=== PATIENT | male | born 1955 | race Caucasian/White ===

== ENCOUNTER 2019-08-13 19:11 | Emergency (ER) | payer MEDICARE, SELFPAY ==
--- NOTE | ~2019-08-13 | XR_ITS ---
XR knee RT 3V 08/13/2019 19:49 INDICATION: Right medial knee pain PROCEDURE: 3 views right knee COMPARISON: No prior studies for comparison. FINDINGS: Fracture, dislocation or subluxation is not identified. Mild patellofemoral compartment ost eoarthritis. The soft tissues appear within normal limits. No foreign bodies are identified. IMPRESSION: 1: No acute fracture. 2: Mild patellofemoral compartment osteoarthritis. Reviewed, dictated and finalized at location A.
[2019-08-13 19:34] VITALS: BP 142/70; PULSE 71; RESP 16; TEMP 36.6; O2SAT 98
--- NOTE | 2019-08-13 19:34 | ED.LOWEXIN ---
HPI - Extremity Injury (Lower) General Chief Complaint: Extremity Injury, Lower Stated Complaint: rihgt knee pain Time Seen by Provider: 08/13/19 19:34 Source: patient Mode of arrival: ambulatory Limitations: no limitations History of Present Illness HPI Narrative: Sesar Hartman is a 64 yo male with c/o R knee pain after working at home this weekend- Pain in R knee, particularly with turning and walking - states he was shoveling over the weekend. Related Data Home Medications Medication Instructions Recorded Confirmed metoprolol tartrate 50 mg BID 08/13/19 08/13/19 oxycodone-acetaminophen 1 tablet Q4-6H 08/13/19 08/13/19 propranolol 20 mg BID 08/13/19 08/13/19 Allergies Allergy/AdvReac Type Severity Reaction Status Date / Time aspirin Allergy Mild Itching Verified 08/13/19 19:35 codeine Allergy Mild Nausea Verified 08/13/19 19:35 hydromorphone Allergy Mild Nausea and Verified 08/13/19 19:35 Vomiting penicillin G Allergy Mild Vomiting Verified 08/13/19 19:35 Review of Systems Review of Systems: Narrative: CONSTITUTIONAL: Denies fever, chills, sweats. EYES: Denies visual changes, redness, discharge. ENT: Denies rhinorrhea, congestion, sore throat, otalgia. CARDIOVASCULAR: Denies chest pain, palpitations, edema. RESPIRATORY: Denies dyspnea, wheezing, cough GASTROINTESTINAL: Denies abdominal pain, nausea, vomiting, diarrhea. GENITOURINARY: Denies dysuria, hematuria, abnormal discharge SKIN: Denies rash or itching. NEUROLOGIC: Denies numbness, or focal weakness. PSYCHIATRIC: Denies anxiety or depression. Right knee pain PMFSH Past Medical History Medical History (Updated 08/13/19 @ 19:49 by Leonila Diaz CNP) Femur fracture Family History Family History Other Hypertension Social History Social History Smoking status: Former smoker Alcohol intake: current Gender identity (if verbalized by the patient): Male Comments At time of signature, I agree with nursing past medical, surgical, social and family history. There is no relevant family history pertinent to the presenting complaint. Exam Narrative: Exam Narrative: GENERAL: This is a well-nourished, well-developed patient, in mild distress. HEAD: normocephalic, atraumatic. EYES:Sclera clear/white. Vision is grossly intact. EARS: External ears normal, a Hearing grossly intact. NOSE: External nose normal without nasal discharge, nares without redness, no rhinorrhea. THROAT: Mucous membranes moist, NECK: Neck supple, CARDIOVASCULAR: Regular rate and rhythm without murmurs, gallops, or rubs. RESPIRATORY: Clear to auscultation. Breath sounds equal bilaterally. No wheezes, rales, or rhonchi. GASTROINTESTINAL: Abdomen soft, SKIN: warm, intact with no suspicious lesions or rash, good texture and turgor. NEURO: awake, alert, and oriented to person, place and time. There were no obvious focal neurologic abnormalities. Steady gait EXTREMITIES: Normal range of motion. Able to walk on right knee pain with pressure of walking pain is on the medial side of patella at the lower patellar pole BACK: tender without deformity Course Course Emergency Course: X-ray right knee Right knee immobilizer Vital Signs Vital signs: Vital Signs Temperature 97.8 F 08/13/19 19:34 Pulse Rate 71 08/13/19 19:34 Respiratory Rate 16 08/13/19 19:34 Blood Pressure 142/70 H 08/13/19 19:34 Pulse Oximetry 98 08/13/19 19:34 Temperature 97.8 F 08/13/19 19:34 Pulse Rate 71 08/13/19 19:34 Respiratory Rate 16 08/13/19 19:34 Blood Pressure 142/70 H 08/13/19 19:34 Pulse Oximetry 98 08/13/19 19:34 MDM - Extremity Injury (Lower) Differential Diagnosis Differential diagnosis: Likely other (Ligamentous injury vs knee sprain) Discharge Plan Discharge Clinical Impression: Knee sprain Qualifiers: Involved ligament of knee: medial
== END 2019-08-13 20:02 | disposition home or self-care (01) ==
PROVIDERS: Emergency Provider Nurse Practitioner; PCP Family Medicine
DX: S83.411A Sprain of medial collateral ligament of right knee, initial encounter (principal); Z87.891 Personal history of nicotine dependence; X50.9XXA Other and unspecified overexertion or strenuous movements or postures, initial encounter
CPT/HCPCS: 73562; 99213; G0463; L1830

== ENCOUNTER 2019-09-03 12:17 | Outpatient (CLI) | payer MEDICARE, SELFPAY ==
--- NOTE | ~2019-09-03 | MR_ITS ---
EXAMINATION: MR knee RT wo con DATE: 09/03/2019 13:42 INDICATION: Right knee injury 304 weeks prior presenting with medial right knee pain and limited rang e of motion with difficulty walking. TECHNIQUE: Magnetic resonance imaging (MRI) of the right knee was performed without intravenous contr ast. Sequences included coronal PD-weighted FSE, coronal PD-weighted FS FSE, sagittal T2-weighted FS E, sagittal PD-weighted FS FSE and axial PD weighted fat saturated FSE. COMPARISON: None. FINDINGS: Medial compartment: Complex medial meniscal tear with curved parrot beak configuration tear plane extending from the free edge to the periphery of the posterior horn as well as a longitudinal horizontal tear plane extendin g to the inferior articular surface of the body and posterior horn. Articular cartilage is normal. Lateral compartment: Lateral meniscus is normal. Articular cartilage is normal. Patellofemoral compartment: Deep chondral fissuring with very small underlying central subchondral osteophytes and minimal subart icular edema at the cephalad aspect of the medial patellar facet and at the inferior aspect of the me dial trochlea. Additional partial thickness chondral fissure without degenerative subchondral changes at the central aspect of the lateral patellar facet. Ligaments and tendons: Anterior and posterior cruciate ligaments are normal. There is small amount of fluid extending along the deep and superficial margin of the normal-appearing medial collateral ligament which is most like ly reactive edema related to a meniscal tear although differential would include low-grade sprain of the medial collateral ligament. The fibular collateral ligament complex is normal. Patellar tendon is normal. Mild distal quadriceps tendinopathy without discrete tear. Mild tendinopathy without discret e tear at the tibial insertion of the distal semimembranosus tendon. The visualized medial and latera l hamstring tendons as well as the iliotibial band are otherwise normal. Fluid: Physiologic amount of fluid in the right knee joint space. There are small ganglion cysts along the p eriphery of the proximal tibiofibular articulation. Very small Patel's cyst. No loose osteochondral b odies identified. Prepatellar edema without discrete bursal fluid collection. Osseous/other: Side from the previous noted tiny foci of subarticular edema at the patellofemoral compartment there is normal marrow signal. No fracture or pathologic marrow replacing process. IMPRESSION: 1. Complex tear of the medial meniscus. 2. Mild patellofemoral osteoarthritis with a couple small regions of high-grade chondromalacia at the medial patellar facet and medial trochlea. 3. Edema along side the normal-appearing medial collateral ligament most likely reactive related to t he medial meniscal tear although differential would include low-grade medial collateral ligament spra in. Reviewed, dictated and finalized at location A. IMPRESSION: 1. Complex tear of the medial meniscus. 2. Mild patellofemoral osteoarthritis with a couple small regions of high-grade chondromalacia at the medial patellar facet and medial trochlea. 3. Edema along side the normal-appearing medial collateral ligament most likely reactive related to the medial meniscal tear although differential would inclu de low-grade medial collateral ligament sprain.
== END 2019-09-03 12:18 | disposition home or self-care (01) ==
PROVIDERS: PCP Family Medicine; Visit Provider Orthopaedic Surgery
DX: S83.241A Other tear of medial meniscus, current injury, right knee, initial encounter (principal); X58.XXXA Exposure to other specified factors, initial encounter
CPT/HCPCS: 73721

== ENCOUNTER 2019-10-06 09:56 | Outpatient (CLI) | payer MEDICARE, SELFPAY ==
--- NOTE | ~2019-10-06 | XR_ITS ---
EXAMINATION: XR chest 2V DATE: 10/06/2019 10:18 INDICATION: Cough and congestion. TECHNIQUE: Frontal and lateral views of the chest were obtained. COMPARISON: None. FINDINGS: There is mild atelectasis at the lung bases. No pleural effusion or pneumothorax. The heart size is normal. Surgical clips in the right upper quadrant are likely from cholecystectomy. IMPRESSION: 1. Mild atelectasis at the lung bases. Reviewed, dictated and finalized at location A.
== END 2019-10-06 09:57 | disposition home or self-care (01) ==
PROVIDERS: PCP Family Medicine; Visit Provider Nurse Practitioner
DX: R05 Cough (principal); R09.89 Other specified symptoms and signs involving the circulatory and respiratory systems; R91.8 Other nonspecific abnormal finding of lung field
CPT/HCPCS: 71046

== ENCOUNTER 2019-12-07 12:26 | Emergency (ER) | payer MEDICARE, SELFPAY ==
[2019-12-07 12:38] VITALS: BP 123/67; PULSE 80; RESP 16; TEMP 36.7; O2SAT 97
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
[2019-12-07] MEDS: TETANUS,DIPHTHERIA,AC PERTUSSIS ADULT (0.5 ML) BOOSTRIX IM (13:01)
== END 2019-12-07 13:20 | disposition home or self-care (01) ==
PROVIDERS: Emergency Provider Nurse Practitioner Family; PCP Family Medicine
DX: S61.031A Puncture wound without foreign body of right thumb without damage to nail, initial encounter (principal); I10 Essential (primary) hypertension; W26.8XXA Contact with other sharp object(s), not elsewhere classified, initial encounter; Z23 Encounter for immunization; Z87.891 Personal history of nicotine dependence
CPT/HCPCS: 90471; 90715; 99212; G0463

== ENCOUNTER 2019-12-11 11:11 | Outpatient (CLI) | payer MEDICARE, SELFPAY ==
[2019-12-11 12:10] LABS: Basophils Absolute Auto 0.1 K/mm3 (0.0-0.1); Basophils Percent Auto 1.5 % (0.2-1.2); Eosinophils Absolute Auto 0.3 K/mm3 (0-0.3); Hematocrit 40.8 % (42.0-52.0); Hemoglobin 13.9 g/dL (14.0-18.0); Immature Granulocyte Absolute 0.03 K/mm3 (0.00-0.031); Immature Granulocyte Percent A 0.4 % (0-0.5); Lymphocytes Absolute Auto 3.35 K/mm3 (0.9-3.2); Lymphocytes Percent Auto 40.9 % (18.3-44.2); Mean Corpuscular HGB Conc 34.1 g/dl (32-36); Mean Corpuscular Hemoglobin 32.2 pg (26-34); Mean Corpuscular Volume 94.4 fl (80-100); Mean Platelet Volume 8.9 fl (7.4-10.4); Monocytes Absolute Auto 0.7 K/mm3 (0.1-0.6); Neutrophils Absolute Auto 3.6 K/mm3 (1.3-6.7); Neutrophils Percent Auto 44.2 % (45.5-73.1); Platelet Count Result 300 k/mm3 (150-375); Red Blood Count 4.32 M/mm3 (4.6-6.20); Red Cell Distribution Width 13.7 % (11.5-14.5); White Blood Count 8.2 K/mm3 (4.5-10.0)
[2019-12-11 12:21] LABS: Alanine Aminotransferase 23 U/L (4-50); Albumin Level 3.9 g/dL (3.5-5.1); Alkaline Phosphatase 48 U/L (38-126); Anion Gap 4 mmol/L (8-16); Aspartate Amino Transferase 23 U/L (17-59); Bilirubin,Total 0.5 mg/dL (0.2-1.3); Blood Urea Nitrogen 12 mg/dL (9-20); Calcium 9.3 mg/dL (8.4-10.2); Carbon Dioxide 28 mmol/L (22-30); Chloride 103 mmol/L (98-107); Cholesterol 226 mg/dL (0-200); Estimated Glomerular Filt Rate > 60; Glucose 116 mg/dL (75-110); HDL Direct 41 mg/dL; Potassium 4.2 mmol/L (3.4-5.0); Sodium 135 mmol/L (137-145); Triglycerides 165 mg/dL (<150)
[2019-12-11 12:32] LABS: LDL Cholesterol Direct 152 mg/dL
[2019-12-11 12:41] LABS: Creatinine Urine 113.3 mg/dL
[2019-12-11 12:52] LABS: Prostate Specific Antigen 0.5 ng/mL (< OR = 4.0); Total Triiodothyronine (T3) 1.05 NG/ML (0.97-1.69)
[2019-12-11 12:55] LABS: Free T4 Free Thyroxine 0.63 ng/mL (0.78-2.19); Vitamin D 25 Hydroxy 40.7 ng/mL
[2019-12-11 13:00] LABS: MALB Creatinine Ratio < 5.3 mg/g (0-30); Microalbumin Urine Random < 6.0 mg/L (0-16.7)
== END 2019-12-11 11:12 | disposition home or self-care (01) ==
LOC: ANHLAB 11:17
PROVIDERS: PCP Family Medicine; Visit Provider Nurse Practitioner Family
DX: R73.01 Impaired fasting glucose (principal); E55.9 Vitamin D deficiency, unspecified; I10 Essential (primary) hypertension; R53.83 Other fatigue; E78.5 Hyperlipidemia, unspecified; Z12.5 Encounter for screening for malignant neoplasm of prostate
CPT/HCPCS: 36415; 80053; 80061; 82043; 82306; 84153; 84439; 84443; 84480; 85025; 87635; C9803; G0103; U0003

== ENCOUNTER 2020-01-26 00:04 | Outpatient (CLI) | payer MEDICARE, SELFPAY ==
[2020-01-26 19:47] LABS: SARS-CoV-2 RNA PCR Negative
== END 2020-01-26 00:05 | disposition home or self-care (01) ==
LOC: ANHCOVIDDT 00:04
PROVIDERS: PCP Family Medicine; Visit Provider Orthopaedic Surgery
DX: Z01.818 Encounter for other preprocedural examination (principal); Z20.828 Contact with and (suspected) exposure to other viral communicable diseases
CPT/HCPCS: 87635; C9803; U0003

== ENCOUNTER 2020-01-26 08:02 | Outpatient (CLI) | payer MEDICARE, SELFPAY ==
--- NOTE | 2020-01-26 08:03 | ECG_ITS ---
Measurements Intervals [place] Rate: 68 P: 3 GA: 159 QRS: -28 QRSD: 106 T: 29 QT: 345 QTc: 369 Interpretive Statements SINUS RHYTHM LOW QRS VOLTAGE IN PRECORDIAL LEADS INCOMPLETE RIGHT BUNDLE BRANCH BLOCK BORDERLINE ECG Electronically Signed On 01-26-2020 9:20:03 [employer] by Ron Bonds D.O.
== END 2020-01-26 08:03 | disposition home or self-care (01) ==
PROVIDERS: PCP Family Medicine; Visit Provider Orthopaedic Surgery
DX: I10 Essential (primary) hypertension (principal); Z01.818 Encounter for other preprocedural examination; I45.10 Unspecified right bundle-branch block
CPT/HCPCS: 93005

== ENCOUNTER 2020-01-29 00:49 | Day surgery (SDC) | payer MEDICARE, SELFPAY ==
--- NOTE | 2019-10-09 07:15 | WPDHPUPDATE1 ---
History and Physical Update Update Date/Time: 10/09/19 07:15 History and Physical has been reviewed, including an updated exam of the patient. There are NO changes in the patient's condition. Risks, benefits, and alternatives have been discussed and questions answered. Patient agrees to proceed with procedure.
[2020-01-22 14:09] VITALS: BMI 35.6
[2020-01-29] VITALS (9 sets, daily range): BP systolic 108–160; BP diastolic 63–92; PULSE 61–80; RESP 14–18; TEMP 36.3–36.5; O2SAT 97–100
--- NOTE | 2020-01-29 07:30 | WPDHPUPDATE1 ---
History and Physical Update Update Date/Time: 01/29/20 07:30 History and Physical has been reviewed, including an updated exam of the patient. There are NO changes in the patient's condition. Risks, benefits, and alternatives have been discussed and questions answered. Patient agrees to proceed with procedure.
[2020-01-29] MEDS: ACETAMINOPHEN 500 MG TABLET 1000 MG PO (11:49)
[2020-01-29] MEDS: LACTATED RINGERS 1,000 ML 30 ML IV CONT ×2 (11:49→15:35)
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
--- NOTE | 2020-01-29 14:13 | SUR.PREOP ---
Up to bathroom. Discussed continued delay.
[2020-01-29] MEDS: ceFAZolin 2 GM/D5W 50 ML 2 GM/50 ML BAG IVPB (14:35)
--- NOTE | 2020-01-29 15:39 | PM.PROC ---
Procedure Note - Detailed Date of procedure: 01/29/20 Pre-op diagnosis: right medial meniscus tear Post-op diagnosis: same Procedure performed: RIGHT KNEE SCOPE WITH PARTIAL MEDIAL MENISCECTOMY AND MAJOR SYNEVECTOMY Description of procedure: PATIENT WAS TAKEN TO THE OR. THE RIGHT LEG WAS PREPPED AND DRAPED STERILE. TROCARS WERE PLACED IN THE USUAL FASHION. CAMERA WAS INTRODUCED. THERE WAS CHONDROMALACIA TO THE PATELLA FEMORAL JOINT. THERE WAS A LOT OF SYNOVITIS IN ALL COMPARTMENTS. THE MEDIAL COMPARTMENT SHOWED CHONDROMALACIA TO THE MED FEMORAL CONDYLE. A SHAVER WAS USED TO PREFORM A CHONDROPLASTY. THERE WAS A COMPLEX MEDIAL MENISCUS TEAR. THE TEAR EXTENDED FROM THE MENISCAL ROOT TO THE POSTERIOR HORN MAIN BODY. THE TEAR WAS RESECTED WITH A BITER AND A SHAVER DOWN TO A SMOOTH BASE. ABOUT 25% OF THE MENISCUS WAS REMOVED. THE ACL WAS INTACT. THE LATERAL MENISCUS WAS NOT TORN. THE LAT COMPARTMENT HAD NO SIGNIFICANT CHONDROMALACIA. THE PATELLO FEMORAL JOINT UNDERWENT CHONDROPLASTY. THERE WAS GRADE 3 CHONDROMALACIA IN MOST OF THE TROCHLEA AND PART OF THE PATELLA. SYNOVECTOMY WAS PREFORMED IN THE SUPERIOR MEDIAL COMPARTMENT AND IN HOFFA'S SYNOVIUM. THE PATELLA TRACKED NORMALLY WITHIN THE TROCHLEA. THE WOUNDS WERE APPROXIMATED WITH 4.0 NYLON. STERILE DRESSING WAS APPLIED. PATIENT WAS EXTUBATED. Anesthesia: GLMA Surgeon: Narayan Mitchell MD Estimated blood loss (mL): 5 Complications: No immediate complications Condition: stable Disposition: PACU
[2020-01-29] MEDS: fentaNYL CITRATE INJ (*CRX) 100 MCG/2 ML VIAL 25 MCG IV PUSH ×4 (16:15→16:35)
--- NOTE | 2020-01-29 16:31 | SUR.PHASEI ---
PT SLEEPING IN INTERVALS. RESP EVEN UNLABORED. P,W,D.
--- NOTE | 2020-01-29 16:45 | SUR.PHASEI ---
PT AWAKE AND ALERT. STATES PAIN BETTER NOW. PT STATES HE ISNT SURE HOW TO USE PAIN SCALE. STATES I'M JUST SORE, BUT ITS BETTER THAN IT WAS . PT READY TO HAVE A DRINK AND SIT IN RECLINER. MEETS ANES CRITERIA.
[2020-01-29] MEDS: oxyCODONE HCL (*CRX) 5 MG TAB IR PO (17:10)
== END 2020-01-29 18:00 | disposition home or self-care (01) ==
PROVIDERS: PCP Family Medicine; Visit Provider Orthopaedic Surgery
PROC: (CPT 29870; principal; 2020-01-29 13:00)
DX: S83.231A Complex tear of medial meniscus, current injury, right knee, initial encounter (principal); W19.XXXA Unspecified fall, initial encounter; I10 Essential (primary) hypertension; M65.861 Other synovitis and tenosynovitis, right lower leg; M94.261 Chondromalacia, right knee; Z87.891 Personal history of nicotine dependence; E66.9 Obesity, unspecified; Z68.35 Body mass index [BMI] 35.0-35.9, adult
CPT/HCPCS: 29881; 29876; 87635; 93005; A9270; C9803; J0690; J2250; J2405; J2704; J3010; J7120; U0003

== ENCOUNTER 2020-05-24 09:16 | Outpatient (CLI) | payer MEDICARE, SELFPAY | END 2020-05-24 09:17 | disposition home or self-care (01) | LOC: ANHCOVIDVC 09:16 | PROVIDERS: PCP Family Medicine | DX: Z23 Encounter for immunization (principal) | CPT/HCPCS: 0001A; 91300 ==

== ENCOUNTER 2020-06-14 16:26 | Outpatient (CLI) | payer MEDICARE, SELFPAY | END 2020-06-14 16:27 | disposition home or self-care (01) | LOC: ANHCOVIDVC 16:26 | PROVIDERS: PCP Family Medicine | DX: Z23 Encounter for immunization (principal) | CPT/HCPCS: 0002A; 91300 ==

== ENCOUNTER 2021-04-08 15:46 | Emergency (ER) | payer MEDICARE, SELFPAY ==
--- NOTE | ~2021-04-08 | XR_ITS ---
EXAMINATION: [id number] INDICATION: Right rib pain after fall TECHNIQUE: A frontal view of the chest and 3 views of the right ribs were obtained. COMPARISON: 10/06/2019 FINDINGS: The lungs are free of acute opacities. There is no pleural effusion or pneumothorax. The ca rdiomediastinal silhouette is normal. Old right rib fractures are noted. No acute rib fracture is micah ntified. IMPRESSION: 1. No acute cardiopulmonary abnormality or evidence of displaced rib fracture. Reviewed, dictated and finalized at location F. 

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
--- NOTE | 2021-04-08 16:14 | PC.NURSE ---
PATIENT REPORT CALLED TO [facility]ONY MESSINA. PT LEFT AMBULATORY WITHOUT DIFFICULTY TO THE [facility] IN TRAN TO COMPLETE CARE AND X-RAYS NEEDED(X-RAY UNAVAILABLE AT THIS FACILITY TODAY).
[2021-04-08 16:18] VITALS: BP 146/85; PULSE 65; RESP 20; TEMP 35.8; O2SAT 96
--- NOTE | 2021-04-08 16:44 | PC.NURSE ---
PT HAS ARRIVED AT [facility] TO OBTAIN XRAYS DUE TO [place] NOT HAVING THE CAPABILITY AT THIS TIME. PT IS CURRENTLY REFUSING THE KNEE XRAY. 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
== END 2021-04-08 18:32 | disposition home or self-care (01) ==
PROVIDERS: Emergency Provider Nurse Practitioner; PCP Family Medicine
DX: S80.212A Abrasion, left knee, initial encounter (principal); S80.02XA Contusion of left knee, initial encounter; S20.211A Contusion of right front wall of thorax, initial encounter; W01.0XXA Fall on same level from slipping, tripping and stumbling without subsequent striking against object, initial encounter; I10 Essential (primary) hypertension
CPT/HCPCS: 71101; 99213; G0463

== ENCOUNTER 2022-04-18 14:27 | Outpatient (CLI) | payer MEDICARE, SELFPAY ==
[2022-04-18 15:39] LABS: Basophils Absolute Auto 0.1 K/mm3 (0.0-0.1); Basophils Percent Auto 1.3 % (0.2-1.2); Eosinophils Absolute Auto 0.3 K/mm3 (0-0.3); Eosinophils Percent Auto 3.6 % (0-4.4); Hemoglobin 13.7 g/dL (14.0-18.0); Immature Granulocyte Absolute 0.02 K/mm3 (0.00-0.031); Immature Granulocyte Percent A 0.2 % (0-0.5); Lymphocytes Absolute Auto 3.21 K/mm3 (0.9-3.2); Lymphocytes Percent Auto 36.9 % (18.3-44.2); Mean Corpuscular HGB Conc 33.4 g/dl (32-36); Mean Corpuscular Hemoglobin 32.1 pg (26-34); Monocytes Absolute Auto 0.6 K/mm3 (0.1-0.6); Monocytes Percent Auto 7.1 % (2.6-8.5); Neutrophils Absolute Auto 4.4 K/mm3 (1.3-6.7); Neutrophils Percent Auto 50.9 % (45.5-73.1); Platelet Count Result 283 k/mm3 (150-375); Red Blood Count 4.27 M/mm3 (4.6-6.20); Red Cell Distribution Width 13.7 % (11.5-14.5); White Blood Count 8.7 K/mm3 (4.5-10.0)
[2022-04-18 16:55] LABS: Free T4 Free Thyroxine 0.81 ng/mL (0.78-2.19); Vitamin D 25 Hydroxy 22.2 ng/mL
[2022-04-18 17:43] LABS: Alanine Aminotransferase 26 U/L (6-50); Albumin Level 3.7 g/dL (3.5-5.1); Alkaline Phosphatase 56 U/L (38-126); Anion Gap 5 mmol/L (8-16); Aspartate Amino Transferase 22 U/L (17-59); Bilirubin,Total 0.4 mg/dL (0.2-1.3); Blood Urea Nitrogen 11 mg/dL (9-20); Calcium 8.7 mg/dL (8.4-10.2); Carbon Dioxide 29 mmol/L (22-30); Chloride 105 mmol/L (98-107); Cholesterol 224 mg/dL (0-200); Estimated Glomerular Filt Rate > 60; Glucose 106 mg/dL (65-110); HDL Direct 44 mg/dL; Potassium 4.2 mmol/L (3.4-5.0); Sodium 139 mmol/L (137-145); Triglycerides 106 mg/dL (<150)
[2022-04-18 17:56] LABS: LDL Cholesterol Direct 139 mg/dL
[2022-04-18 18:14] LABS: Prostate Specific Antigen 0.5 ng/mL (< OR = 4.0); Total Triiodothyronine (T3) 1.07 NG/ML (0.97-1.69)
[2022-04-18 18:42] LABS: Hemoglobin A1C 5.8 % (<5.7)
== END 2022-04-18 14:28 | disposition home or self-care (01) ==
LOC: ANHLAB 14:29
PROVIDERS: PCP Family Medicine; Visit Provider Family Medicine
DX: E11.9 Type 2 diabetes mellitus without complications (principal); E55.9 Vitamin D deficiency, unspecified; R53.1 Weakness; E78.5 Hyperlipidemia, unspecified; R53.83 Other fatigue; Z12.5 Encounter for screening for malignant neoplasm of prostate; I10 Essential (primary) hypertension
CPT/HCPCS: 36415; 80053; 80061; 82306; 83036; 84153; 84439; 84443; 84480; 85025; G0103

== ENCOUNTER 2022-08-28 14:58 | Outpatient (CLI) | payer MEDICARE, SELFPAY ==
--- NOTE | ~2022-08-28 | XR_ITS ---
XR hip BI wo pelvis 08/28/2022 15:50 Indication: Bilateral hip pain. Procedure: 2 views each hip Comparison: No prior studies for comparison. Findings: There is an intramedullary mis in the left femur. There are multiple sternal screws transfi sonja the proximal aspect of the left femur. Mild osteoarthritis of the hip. There is a healed mid fem oral shaft fracture with callus formation. No acute fracture or traumatic malalignment. Normal alignment of the right hip. No fracture, subluxation or dislocation. No significant soft tissu e abnormality. No foreign bodies. Impression: 1: No acute bone or joint abnormality. 2: Mild osteoarthritis of the left hip. Reviewed, dictated and finalized at location [] Impression: 1: No acute bone or joint abnormality. 2: Mild osteoarthritis of the left hip.
--- NOTE | ~2022-08-28 | XR_ITS ---
EXAM: [id number] DATE: 08/28/2022 15:50 HISTORY: PAIN IN LEFT HIP, UNEQUAL LIMB LENGTH, HX FEM DENIA 20YRS AGO . COMPARISON: None available. FINDINGS: Partially visualized left femoral hardware. Normal mineralization. No fracture or dislocati on. No lytic or blastic lesion. Quadriceps enthesopathy on the right. Moderate right medial compartme nt narrowing. Mild left medial compartment and bilateral lateral compartment narrowing. Mild tricompa rtmental osteophytosis. No erosion or periosteal change. Soft tissues within normal limits. IMPRESSION: Bilateral knee osteoarthritis. Reviewed, dictated and finalized at location K.
--- NOTE | ~2022-08-28 | XR_ITS ---
XR femur LT min 2V 08/28/2022 15:50 Indication: Left femur length Procedure: 2 views left femur Comparison: 04/28/2005 and 08/28/2022 Findings: There is an intramedullary mis of the left femur. There are multiple screws transfixing the left proximal femur. There are 2 distal interlocking screws. There is callus formation from healed l eft mid shaft fracture of the femur. No acute fracture or traumatic malalignment. There is mild osteo arthritis of the left hip. Impression: 1: Healed midshaft fracture of the left femur transfixed by intramedullary mis. Reviewed, dictated and finalized at location [] Impression: 1: Healed midshaft fracture of the left femur transfixed by intramedullary mis.
--- NOTE | ~2022-08-28 | XR_ITS ---
EXAM: [id number] DATE: 08/28/2022 15:50 HISTORY: PAIN IN LEFT HIP, UNEQUAL LIMB LENGTH, HX FEM DENIA 20YRS AGO . COMPARISON: None available. FINDINGS: Partially visualized left femoral hardware. Normal mineralization. No fracture or dislocati on. No lytic or blastic lesion. Quadriceps enthesopathy on the right. Moderate right medial compartme nt narrowing. Mild left medial compartment and bilateral lateral compartment narrowing. Mild tricompa rtmental osteophytosis. No erosion or periosteal change. Soft tissues within normal limits. IMPRESSION: Bilateral knee osteoarthritis. Reviewed, dictated and finalized at location K.
== END 2022-08-28 14:59 | disposition home or self-care (01) ==
PROVIDERS: PCP Family Medicine; Visit Provider Pain Medicine Interventional Pain Medicine
DX: M21.752 Unequal limb length (acquired), left femur (principal); E66.9 Obesity, unspecified; F33.1 Major depressive disorder, recurrent, moderate; F41.1 Generalized anxiety disorder; G89.4 Chronic pain syndrome; M16.0 Bilateral primary osteoarthritis of hip; M17.0 Bilateral primary osteoarthritis of knee
CPT/HCPCS: 73521; 73552; 73560

== ENCOUNTER 2023-01-15 12:59 | Outpatient (CLI) | payer MEDICARE, SELFPAY ==
[2023-01-15 13:58] LABS: Basophils Absolute Auto 0.1 K/mm3 (0.0-0.1); Basophils Percent Auto 1.2 % (0.2-1.2); Eosinophils Absolute Auto 0.3 K/mm3 (0-0.3); Eosinophils Percent Auto 3.3 % (0-4.4); Hematocrit 42.2 % (42.0-52.0); Hemoglobin 14.2 g/dL (14.0-18.0); Immature Granulocyte Absolute 0.02 K/mm3 (0.00-0.031); Immature Granulocyte Percent A 0.3 % (0-0.5); Lymphocytes Absolute Auto 3.11 K/mm3 (0.9-3.2); Lymphocytes Percent Auto 41.5 % (18.3-44.2); Mean Corpuscular HGB Conc 33.6 g/dl (32-36); Mean Corpuscular Hemoglobin 31.8 pg (26-34); Mean Corpuscular Volume 94.6 fl (80-100); Mean Platelet Volume 8.9 fl (7.4-10.4); Monocytes Absolute Auto 0.7 K/mm3 (0.1-0.6); Monocytes Percent Auto 8.8 % (2.6-8.5); Neutrophils Absolute Auto 3.4 K/mm3 (1.3-6.7); Neutrophils Percent Auto 44.9 % (45.5-73.1); Platelet Count Result 271 k/mm3 (150-375); Red Blood Count 4.46 M/mm3 (4.6-6.20); Red Cell Distribution Width 13.7 % (11.5-14.5); White Blood Count 7.5 K/mm3 (4.5-10.0)
[2023-01-15 14:09] LABS: Hemoglobin A1C 5.7 % (<5.7)
[2023-01-15 14:11] LABS: Alanine Aminotransferase 22 U/L (6-50); Alkaline Phosphatase 48 U/L (38-126); Anion Gap 5 mmol/L (8-16); Aspartate Amino Transferase 22 U/L (17-59); Bilirubin,Total 0.7 mg/dL (0.2-1.3); Blood Urea Nitrogen 10 mg/dL (9-20); Calcium 8.9 mg/dL (8.4-10.2); Carbon Dioxide 28 mmol/L (22-30); Chloride 103 mmol/L (98-107); Cholesterol 228 mg/dL (0-200); Estimated Glomerular Filt Rate > 60; Glucose 103 mg/dL (65-110); HDL Direct 43 mg/dL; Potassium 4.2 mmol/L (3.4-5.0); Sodium 136 mmol/L (137-145); Triglycerides 140 mg/dL (<150)
[2023-01-15 14:21] LABS: Iron 114 ug/dL (49-181)
[2023-01-15 14:22] LABS: LDL Cholesterol Direct 144 mg/dL
[2023-01-15 14:28] LABS: Creatinine Urine 154.2 mg/dL
[2023-01-15 14:34] LABS: Free T4 Free Thyroxine 0.78 ng/mL (0.78-2.19); Percent Iron Saturation 40 % (20-50)
[2023-01-15 14:36] LABS: Vitamin D 25 Hydroxy 34.9 ng/mL
[2023-01-15 14:39] LABS: MALB Creatinine Ratio < 3.9 mg/g (0-30); Microalbumin Urine Random < 6.0 mg/L (0-16.7)
[2023-01-15 14:41] LABS: Prostate Specific Antigen 0.8 ng/mL (< OR = 4.0); Total Triiodothyronine (T3) 0.97 NG/ML (0.97-1.69)
[2023-01-15 15:01] LABS: Hepatitis C Virus Antibody Negative (Negative)
[2023-01-15 15:17] LABS: Folic Acid 15.4 ng/mL (2.76->20)
[2023-01-18 16:04] LABS: Alpha-Tocopherol 19.2 mg/L (5.7-19.9); Beta-Gamma Tocopherol <1.0 mg/L (<=4.3)
[2023-01-19 12:55] LABS: Vitamin B6 12.8 ng/mL (2.1-21.7)
[2023-01-19 13:06] LABS: Vitamin B1 9 nmol/L (8-30)
== END 2023-01-15 13:00 | disposition home or self-care (01) ==
PROVIDERS: PCP Family Medicine; Visit Provider Nurse Practitioner Adult Health
DX: E55.9 Vitamin D deficiency, unspecified (principal); E78.5 Hyperlipidemia, unspecified; E11.9 Type 2 diabetes mellitus without complications; Z11.59 Encounter for screening for other viral diseases; I10 Essential (primary) hypertension; I27.20 Pulmonary hypertension, unspecified; R53.1 Weakness; R53.83 Other fatigue; Z12.5 Encounter for screening for malignant neoplasm of prostate
CPT/HCPCS: 36415; 80053; 80061; 82043; 82306; 82607; 82746; 83036; 83540; 83550; 84153; 84207; 84252; 84425; 84439; 84443; 84446; 84480; 85025; 86803

== ENCOUNTER 2023-08-08 16:35 | Outpatient (CLI) | payer MEDICARE, SELFPAY ==
[2023-08-08 17:27] LABS: Basophils Absolute Auto 0.1 K/mm3 (0.0-0.1); Basophils Percent Auto 1.4 % (0.2-1.2); Eosinophils Absolute Auto 0.4 K/mm3 (0-0.3); Eosinophils Percent Auto 4.9 % (0-4.4); Hematocrit 41.3 % (42.0-52.0); Hemoglobin 13.8 g/dL (14.0-18.0); Immature Granulocyte Absolute 0.02 K/mm3 (0.00-0.031); Immature Granulocyte Percent A 0.3 % (0-0.5); Lymphocytes Absolute Auto 3.12 K/mm3 (0.9-3.2); Lymphocytes Percent Auto 40.3 % (18.3-44.2); Mean Corpuscular HGB Conc 33.4 g/dl (32-36); Mean Corpuscular Hemoglobin 32.2 pg (26-34); Mean Corpuscular Volume 96.5 fl (80-100); Mean Platelet Volume 9.2 fl (7.4-10.4); Monocytes Absolute Auto 0.8 K/mm3 (0.1-0.6); Monocytes Percent Auto 10.2 % (2.6-8.5); Neutrophils Absolute Auto 3.3 K/mm3 (1.3-6.7); Neutrophils Percent Auto 42.9 % (45.5-73.1); Platelet Count Result 279 k/mm3 (150-375); Red Blood Count 4.28 M/mm3 (4.6-6.20); Red Cell Distribution Width 13.6 % (11.5-14.5); White Blood Count 7.8 K/mm3 (4.5-10.0)
[2023-08-08 17:39] LABS: Alanine Aminotransferase 27 U/L (6-50); Albumin Level 3.9 g/dL (3.5-5.1); Alkaline Phosphatase 49 U/L (38-126); Anion Gap 4 mmol/L (4-12); Aspartate Amino Transferase 23 U/L (17-59); Bilirubin,Total 0.6 mg/dL (0.2-1.3); Blood Urea Nitrogen 13 mg/dL (9-20); Calcium 8.9 mg/dL (8.4-10.2); Carbon Dioxide 27 mmol/L (22-30); Chloride 107 mmol/L (98-107); Cholesterol 219 mg/dL (0-200); Estimated Glomerular Filt Rate > 60; Glucose 110 mg/dL (65-110); HDL Direct 41 mg/dL; Potassium 4.2 mmol/L (3.4-5.0); Sodium 138 mmol/L (137-145); Triglycerides 166 mg/dL (<150)
[2023-08-08 17:50] LABS: LDL Cholesterol Direct 148 mg/dL
== END 2023-08-08 16:36 | disposition home or self-care (01) ==
PROVIDERS: PCP Family Medicine
DX: E78.5 Hyperlipidemia, unspecified (principal); I10 Essential (primary) hypertension; E11.9 Type 2 diabetes mellitus without complications
CPT/HCPCS: 36415; 80053; 80061; 83036; 85025

== ENCOUNTER 2023-09-26 15:49 | Outpatient (CLI) | payer MEDICARE, SELFPAY ==
--- NOTE | ~2023-09-26 | XR_ITS ---
EXAMINATION: XR lumbar spine 2-3V DATE: 09/26/2023 16:34 INDICATION: Lumbar radiculopathy. TECHNIQUE: 3 views of lumbar spine were obtained. COMPARISON: None. FINDINGS: There is 6 degrees levocurvature of lumbar spine. Vertebral body heights are normal. There is mildly decreased disc height at L3-L4 and L4-L5. There are Schmorl's nodes at multiple levels. The re is multilevel facet joint osteoarthritis, severe in lower lumbar spine. IMPRESSION: 1. Mild lumbar spondylosis. Reviewed, dictated and finalized at location E. IMPRESSION: 1. Mild lumbar spondylosis.
--- NOTE | ~2023-09-26 | XR_ITS ---
EXAMINATION: XR femur LT min 2V, [id number] DATE: 09/26/2023 16:35 INDICATION: Left knee and thigh pain. TECHNIQUE: 1. Overlapping proximal and distal, AP and lateral views of the affected femur were obtained. 2. AP and lateral views of the left knee were obtained. COMPARISON: None FINDINGS: Old healed mid diaphyseal fracture of the left femur which is fixed with an antegrade intramedullary mis with a pair of distal interlocking screws. Not associated with the intramedullary mis is a leg sc rew and pin extending across the left femoral neck and couple additional screws more at the greater t rochanter when extending from the greater trochanter to the lesser trochanter. Alignment appears near -anatomic. Mild osteoarthritis at the left hip. At least mild osteoarthritis at the left knee with ti ny marginal osteophytes in all 3 compartments but without evident joint space narrowing on the nonwei ghtbearing imaging. No left knee joint effusion. IMPRESSION: 1. Old healed internally fixed mid diaphyseal fracture of the left femur with additional internal fix ation more proximally at the left femoral head and neck and intratrochanteric femur. No acute osseous abnormality. 2. Mild osteoarthritis at the left hip and knee. Reviewed, dictated and finalized at location A. IMPRESSION: 1. Old healed internally fixed mid diaphyseal fracture of the left femur with a dditional internal fixation more proximally at the left femoral head and neck a nd intratrochanteric femur. No acute osseous abnormality. 2. Mild osteoarthritis at the left hip and knee.
--- NOTE | ~2023-09-26 | XR_ITS ---
EXAMINATION: XR hip BI wo pelvis DATE: 09/26/2023 16:34 INDICATION: Hip pain. TECHNIQUE: 2 views of right hip and 2 views of left hip were obtained. COMPARISON: Left femur radiograph 08/28/2022 FINDINGS: There is an old healed fracture of left femoral diaphysis with internal fixation with anteg rade intramedullary mis and multiple screws. No acute fracture. There is mild osteoarthritis of the h ips. IMPRESSION: 1. Mild osteoarthritis of the hips. Reviewed, dictated and finalized at location E.
--- NOTE | ~2023-09-26 | XR_ITS ---
EXAMINATION: XR_[id number]_CR DATE: 09/26/2023 16:34 INDICATION: Right knee pain. TECHNIQUE: 3 views of right knee were obtained. COMPARISON: Right knee radiograph 08/28/2022 FINDINGS: Alignment is normal. No fracture. There is moderate osteoarthritis of medial compartment an d mild osteoarthritis of lateral and patellofemoral compartments. No knee joint effusion. IMPRESSION: 1. Moderate right knee osteoarthritis. Reviewed, dictated and finalized at location E.
== END 2023-09-26 15:50 | disposition home or self-care (01) ==
LOC: ANHIMG 15:53
PROVIDERS: PCP Family Medicine; Visit Provider Pain Medicine Interventional Pain Medicine
DX: F41.1 Generalized anxiety disorder (principal); F33.1 Major depressive disorder, recurrent, moderate; E66.9 Obesity, unspecified; M47.896 Other spondylosis, lumbar region; M16.0 Bilateral primary osteoarthritis of hip; M17.0 Bilateral primary osteoarthritis of knee
CPT/HCPCS: 72100; 73521; 73552; 73560

== ENCOUNTER 2024-02-10 10:39 | Outpatient (CLI) | payer MEDICARE, SELFPAY ==
[2024-02-10 11:36] LABS: Alanine Aminotransferase 36 U/L (6-50); Alkaline Phosphatase 50 U/L (38-126); Anion Gap 3 mmol/L (4-12); Aspartate Amino Transferase 29 U/L (17-59); Bilirubin,Total 0.6 mg/dL (0.2-1.3); Blood Urea Nitrogen 11 mg/dL (9-20); Calcium 8.7 mg/dL (8.4-10.2); Carbon Dioxide 31 mmol/L (22-30); Chloride 104 mmol/L (98-107); Cholesterol 211 mg/dL (0-200); Estimated Glomerular Filt Rate 60; Glucose 96 mg/dL (65-110); HDL Direct 40 mg/dL; Potassium 4.2 mmol/L (3.4-5.0); Sodium 138 mmol/L (137-145); Triglycerides 147 mg/dL (<150)
[2024-02-10 11:47] LABS: LDL Cholesterol Direct 130 mg/dL
== END 2024-02-10 10:40 | disposition home or self-care (01) ==
PROVIDERS: PCP Family Medicine
DX: E78.5 Hyperlipidemia, unspecified (principal); I10 Essential (primary) hypertension; E66.9 Obesity, unspecified
CPT/HCPCS: 36415; 80053; 80061

== ENCOUNTER 2024-11-17 09:14 | Outpatient (CLI) | payer MEDICARE, MEDICAID, SELFPAY ==
--- OUTSIDE RECORDS SUMMARY | 2024-11-17 09:41 | XMS_ITS | Clinical Summary ---
Author Organization [facility] Address [address] [place] [address] Care Team Providers Care Case Supervisor Name Role Phone Unavailable Primary Care Provider Unavailabl e Social History Tobacco Use Types Packs/Day Years Used Date Smoking Tobacco: Never Assessed Sex and Gender Information Value Date Recorded Sex Assigned at Not on file Legal Sex Male 10:56 PM CDT Gender Identity Not on file Sexual Orientation Not on file Plan of Treatment Health Maintenance Due Date Last Done Comments Hepatitis C Virus (HCV) Screening 1955 TdaP Immunization 1955 Cologuard 07/20/1999 Colonoscopy 07/20/1999 Colorectal Cancer Screening 07/20/1999 Immunochemical Fecal Occult Blood 07/20/1999 Pneumococcal Immunization (5 0+ years) (1 of 1 - PCV) 2004 Zoster Immunization (1 of 2) 2004 SARS-COV-2 Immunization ( - season) 2023 03/03/2021, 06/14/2020, 05/24/2020 Influenza Immunization (#1) 11/16/202401/16, 12/24/2019, 01/10/2018 Respiratory Syncytial Virus (RSV) Immunization (Adult) (1 - 1-dose 75+ series) 2029 Hepatitis B Immunization Aged Out No longer eligible based on patient's age to complete this topic Human Papillomavirus (HPV) Immunization Aged Out No longer eligible b ased on patient's age to complete this topic Meningococcal Immunization (ACWY) Aged Out No longer eligible b ased on patient's age to complete this topic Rotavirus Immunization Aged Out No lo nger eligible based on patient's age to complete this topic
[2024-11-17 09:58] LABS: Hematocrit 42.0 % (42.0-52.0); Hemoglobin 13.8 g/dL (14.0-18.0); Immature Granulocyte Percent A 0.3 % (0-0.5); Lymphocytes Absolute Auto 3.12 K/mm3 (0.9-3.2); Mean Corpuscular HGB Conc 32.9 g/dl (32-36); Mean Corpuscular Hemoglobin 31.4 pg (26-34); Mean Corpuscular Volume 95.5 fl (80-100); Nucleated Red Blood Cells Absolute Auto 0.000 K/mm3 (0.0-0.012); Nucleated Red Blood Cells Perc 0.0 % (0.0-0.2); Platelet Count Result 263 k/mm3 (150-375); Red Blood Count 4.40 M/mm3 (4.6-6.20); White Blood Count 8.8 K/mm3 (4.5-10.0)
[2024-11-17 10:21] LABS: Alanine Aminotransferase 26 U/L (6-50); Albumin Level 3.8 g/dL (3.5-5.1); Alkaline Phosphatase 53 U/L (38-126); Anion Gap 7 mmol/L (4-12); Aspartate Amino Transferase 25 U/L (17-59); Bilirubin,Total 0.7 mg/dL (0.2-1.3); Blood Urea Nitrogen 11 mg/dL (9-20); Calcium 8.8 mg/dL (8.4-10.2); Carbon Dioxide 27 mmol/L (22-30); Chloride 103 mmol/L (98-107); Cholesterol 199 mg/dL (0-200); Estimated Glomerular Filt Rate > 60; Glucose 118 mg/dL (65-110); HDL Direct 35 mg/dL; Potassium 4.0 mmol/L (3.4-5.0); Sodium 137 mmol/L (137-145); Total Protein 7.1 g/dL (6.3-8.2); Triglycerides 91 mg/dL (<150)
[2024-11-17 10:28] LABS: Hemoglobin A1C 6.2 % (<5.7)
[2024-11-17 10:29] LABS: MALB Creatinine Ratio < 3.3 mg/g (0-30)
[2024-11-17 10:57] LABS: Prostate Specific Antigen 0.7 ng/mL (< OR = 4.0)
== END 2024-11-17 09:15 | disposition home or self-care (01) ==
LOC: ANHLAB 09:26
PROVIDERS: PCP Family Medicine; Visit Provider Family Medicine
DX: R73.01 Impaired fasting glucose (principal); E78.5 Hyperlipidemia, unspecified; I27.20 Pulmonary hypertension, unspecified; Z11.59 Encounter for screening for other viral diseases; Z12.5 Encounter for screening for malignant neoplasm of prostate
CPT/HCPCS: 36415; 80053; 80061; 82043; 83036; 84153; 85025; 86803; G0103